=== PATIENT | female | born 1980 | race Caucasian/White ===

== ENCOUNTER 2016-11-08 09:36 | Emergency (ER) | payer OTHER ==
[2016-11-08 09:36] VITALS: BMI 21.9
[2016-11-08 09:44] VITALS: BP 119/78; TEMP 97
--- NOTE | 2016-11-08 10:18 | ED.PDOC ---
General ED Provider: Dr. REGINE FRENCH Chief Complaint: Facial Injury Stated Complaint: patient is a 36 year old female who states she was told that she has glucoma at [facility] when she went to get her glasses. She has not yet seen an opthamilogist. She states that she started having right eye pain two days ago with numbness around the eye. She denies any Trauma. Has photophobia and her vision is decreased on the right eye. Time Seen by Physician: 10:16 Mode of Arrival: Walk-In Information Source: Patient Exam Limitations: No limitations Primary Care Provider: [facility] Nursing and Triage Documentation Reviewed and Agree: Yes EENT Complaint Exam - Eye Complaint/Exam Onset/Duration: 2 days Symptoms Are: Still present Timing: Constant Initial Severity: Moderate Current Severity: Mild Location: Right Character: Reports: Dull, Throbbing Aggravating: Reports: Light Alleviating: Reports: Darkness Associated Signs and Symptoms: Reports: Photophobia, Vision impairment. Denies : Clear drainage, Purulent drainage, Fever, Swelling Related History: Reports: Glaucoma Eye Surgical History: Reports: None Penetrating Injury Risk Factors: None Globe Rupture Risk Factors: None Acute Glaucoma Risk Factors: None Optic Artery Occlusion Risk Factors: None Visual Acuity Right Eye: 20/50 Visual Acuity Left Eye: 20/20 Review of Systems - Review Of Systems Constitutional: Reports: No symptoms Eyes: Reports: Vision change, Photophobia, Glasses Ears, Nose, Mouth, Throat: Reports: No symptoms Respiratory: Reports: No symptoms Cardiac: Reports: No symptoms GI: Reports: No symptoms : Reports: No symptoms Musculoskeletal: Reports: No symptoms Skin: Reports: No symptoms Neurological: Reports: No symptoms Endocrine: Reports: No symptoms Hematologic/Lymphatic: Reports: No symptoms All Other Systems: Reviewed and Negative Past Medical History - Past Medical History Previously Healthy: No Endocrine: Reports: None Cardiovascular: Reports: Other (symptomatic bradycardia- pacemaker) Respiratory: Reports: None Hematological: Reports: None Gastrointestinal: Reports: Other Genitourinary: Reports: Other Neuro/Psych: Reports: None Musculoskeletal: Reports: None Cancer: Reports: Other Last Menstrual Period: none Other Pertinent Past Medical History: Glaucoma - Surgical History General Surgical History: Reports: Hysterectomy (dysplasia with muscle involvement), Cholecystectomy, Pacemaker - Family History Family History: Reports: Unknown - Social History Smoking Status: Current every day smoker Hx Substance Use: No Alcohol Screening: Occasionally Physical Exam - Physical Exam Appearance: Well-appearing, No pain distress, Well-nourished Eyes: KIRIT, EOMI, Conjunctiva clear, Right pupil size (5mm), Left pupil size ( 5mm) ENT: Ears normal, Nose normal, Oropharynx normal Respiratory: Airway patent, Breath sounds clear, Breath sounds equal, Respirations nonlabored Cardiovascular: RRR, Pulses normal, No rub, No murmur GI/: Soft, Nontender, No masses, Bowel sounds normal, No Organomegaly Musculoskeletal: Normal strength, ROM intact, No edema, No calf tenderness Skin: Warm, Dry, Normal color Neurological: Sensation intact, Motor intact, Reflexes intact, Cranial nerves intact, Alert, Oriented Psychiatric: Affect appropriate, Mood appropriate Physician Notification - Case Discussed Physician Notified: DR Curran [facility] Time of Notification: 10:30 Critical Care Note - Critical Care Note Total Time (mins): 0 Course - Course Vital Signs: Temp Pulse Resp BP Pulse Ox 11/08/16 09:36 97.0 F L 76 18 119/78 97 Departure - Departure Time of Disposition: 10:39 Disposition: HOME SELF-CARE Discharge Problem: Acute pain in right eye Glaucoma Qualifiers: Glaucoma type: other Laterality: right Qualifier Code: (H40.89) Other specified glaucoma Instructions: Glaucoma (ED) Condition: Good Pt referred to PMD for follow-up: Yes Additional Instructions: Go to Dr Curran [facility] at [address] in [place] Right away he will be waiting for you at 11 :15 Allergies/Adverse Reactions: Allergies shellfish derived Adverse Reaction (Verified 11/08/16 09:40) Home Medications: Ambulatory Orders 1 [No Reported Medications] 11/08/16 Disposition Discussed With: Patient
[2016-11-08] MEDS ORDERED: TYLENOL PO STA (10:23)
== END 2016-11-08 10:50 | disposition home or self-care (01) ==
LOC: ED 09:36
DX: H57.11 Ocular pain, right eye (principal); H40.9 Unspecified glaucoma; F17.210 Nicotine dependence, cigarettes, uncomplicated
CPT/HCPCS: 99282

== ENCOUNTER 2017-06-16 13:20 | Outpatient (CLI) | END 2017-06-16 13:21 | disposition home or self-care (01) | LOC: LAB 13:20 | PROVIDERS: ATTEND Emergency Medicine | DX: R68.89 Other general symptoms and signs (principal); J06.9 Acute upper respiratory infection, unspecified | CPT/HCPCS: 87502; 87651 ==

== ENCOUNTER 2017-06-18 09:48 | Emergency (ER) ==
[2017-06-18 09:52] VITALS: BP 117/78; TEMP 99; BMI 23.0
[2017-06-18] MEDS ORDERED: TORADOL IM STA (10:40)
[2017-06-18] MEDS ORDERED: NORFLEX PO STA (10:43)
--- NOTE | 2017-06-18 10:44 | ED.PDOC ---
General ED Provider: Dr. AAMIR FONG Chief Complaint: Shortness of Air Stated Complaint: Severe shortness of breath/associated chest pain. HPI: Was seen by PCP Dr Malone yesterday for severe respiratory symptoms of cough, congestion; was evaluated with neg strep and flu test. Started on Prednisone and Penicillin for "bacterial-viral" infection.This morning after going to work at the long-[employer] became extremely short of breath with associate chest pain just walking down the halll and my supervisor [employer] products advised me to leave work and go to the ER. 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 Had to be shocked once. 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.) Nursing and Triage Documentation Reviewed and Agree: Yes Reviewed sepsis parameters & appropriate labs ordered?: Yes System Inflammatory Response Syndrome: Not Applicable Sepsis Protocol: For patient's 13 years and over: Temp is 96.8 and below OR 101 and greater Pulse >90 BPM Resp >20/minute Acutely Altered Mental Status Are patient's symptoms suggestive of a new infection, such as: -Pneumonia -Skin, Soft Tissue -Endocarditis -UTI -Bone, Joint Infection -Implantable Device -Acute Abdominal Infection -Wound Infection -Meningitis -Blood Stream Catheter Infection -Unknown System Inflammatory Response Syndrome: Not Applicable Respiratory Complaint Exam - Shortness of Air Complaint/Exam Symptoms Are: Resolved Timing: Intermittent Initial Severity: Severe Current Severity: None Character: Reports: Dyspnea on exertion Aggravating: Reports: Movement, Deep breaths, Recumbent position, URI Alleviating: Reports: None Associated Signs and Symptoms: Reports: Cough, Wheezing, Chest pain with cough, Chest pain Related History: Reports: Similar episode History of Healthcare-Acquired Pneumonia: No Pulmonary Embolism Risk Factors: Reports: None Cardiac Risk Factors: Reports: Hypertension (hx of coccaine abuse) Pseudomonas Risk Factors: Reports: None Tuberculosis Risk Factors: Reports: None Home Oxygen Use: No Recent Stress Test: No Recent Echo/LV Function: No Respiratory Distress: None Stridor Present: No Tracheal Deviation: No Subcutaneous Emphysema: No Accessory Muscle Use: No Retractions: Not Present Diminished Breath Sounds: No Prolonged Expiratory Phase: No Unable to Speak Full Sentences: No Fatigue: No Leg Swelling: No Neelam's Sign Present: No Grunting Respirations: No Kussmaul Respirations: No Differential Diagnoses: Unstable Angina, Bronchitis, URI Quality Indicator For Non-Traumatic Chest Pain/Syncope: EKG Performed Review of Systems - Review Of Systems Constitutional: Reports: No symptoms Eyes: Reports: No symptoms Ears, Nose, Mouth, Throat: Reports: No symptoms Respiratory: Reports: Cough, Short of air Cardiac: Reports: Chest pain GI: Reports: No symptoms : Reports: No symptoms Musculoskeletal: Reports: Back pain Skin: Reports: No symptoms Neurological: Reports: No symptoms Endocrine: Reports: No symptoms Hematologic/Lymphatic: Reports: No symptoms All Other Systems: Reviewed and Negative Past Medical History - Past Medical History Previously Healthy: No Endocrine: Reports: None Cardiovascular: Reports: Other (symptomatic bradycardia- pacemaker) Respiratory: Reports: None Hematological: Reports: None Gastrointestinal: Reports: Other Genitourinary: Reports: Other Neuro/Psych: Reports: None Musculoskeletal: Reports: None Cancer: Reports: Other Last Menstrual Period: HYSTERECTOMY Other Pertinent Past Medical History: Glaucoma - Surgical History General Surgical History: Reports: Hysterectomy (dysplasia with muscle involvement), Cholecystectomy, Pacemaker - Family History Family History: Reports: Unknown - Social History Smoking Status: Current every day smoker, Heavy tobacco smoker Hx Substance Use: No Alcohol Screening: Occasionally - Immunizations Tetanus Shot up to Date: No Physical Exam - Physical Exam Appearance: Well-appearing Ill-appearing: Mild Pain Distress: Moderate Eyes: KIRIT, EOMI, Conjunctiva clear ENT: Ears normal Neck: Supple Respiratory: Airway patent, Breath sounds clear, Breath sounds equal Cardiovascular: RRR, Pulses normal, No rub, No murmur GI/: Soft, Nontender, No masses, Bowel sounds normal Musculoskeletal: Normal strength (Rt Upper Throracic PVM spasm and Somtic Dysfunction T3-4), ROM intact, No edema, No calf tenderness Skin: Warm, Dry Neurological: Sensation intact, Motor intact, Reflexes intact, Cranial nerves intact, Alert, Oriented Psychiatric: Affect appropriate, Anxious Procedures - Additional Procedures Additional Procedures: Other (OMT counterstrain Rt Thoracic Region ) Re-Evaluation - Re-Evaluation Time of Re-Evaluation: 12:30 Status: Improved Vital Signs Stable: Yes Appearance: NAD Lungs: Clear Skin: Warm and Dry Neuro: Alert and Oriented X3 CV: RRR Additional Comments: Still has some tenderness to palpation RT Upper Thoracic region-ant chest Critical Care Note - Critical Care Note Total Time (mins): 0 Course - Course Hematology/Chemistry: 06/18/17 10:55 06/18/17 10:55 Orders, Labs, Meds: Lab Review 06/18/17 06/18/17 10:55 10:55 WBC 12.20 H RBC 4.12 L Hgb 12.7 Hct 37.2 MCV 90.3 MCH 30.8 MCHC 34.1 RDW Coeff of Jailyn 12.8 Plt Count 248 Immature Gran % (Auto) 1.2 Neut % (Auto) 72.9 Lymph % (Auto) 17.6 [place] % (Auto) 7.0 Eos % (Auto) 1.1 Baso % (Auto) 0.2 Immature Gran # (Auto) 0.2 Neut # 8.9 H Lymph # 2.2 [place] # 0.9 Eos # 0.1 Baso # 0.0 Sodium 142 Potassium 4.1 Chloride 107 Carbon Dioxide 25 Anion Gap 14.1 BUN 15 Creatinine 0.91 Estimated GFR (MDRD) 70.00 BUN/Creatinine Ratio 16.48 Glucose 115 H Calcium 9.2 Total Bilirubin < 0.3 AST 18 ALT 35 Alkaline Phosphatase 89 Troponin I 0.0130 Total Protein 6.8 Albumin 3.7 Globulin 3.1 Albumin/Globulin Ratio 1.19 Orders Category Date Time Status EKG-(ED ONLY) Stat CARDIO 06/18/17 10:41 Completed CBC W/ AUTO DIFF Stat LAB 06/18/17 10:55 Completed CMP [COMPREHENSIVE METABOLIC PANEL] Stat LAB 06/18/17 10:55 Completed TROPONIN I Stat LAB 06/18/17 10:55 Completed Ketorolac Tromethamine [Toradol] MEDS 06/18/17 10:40 Discontinued 30 mg IM ONCE STA Orphenadrine Citrate [Norflex] MEDS 06/18/17 10:43 Discontinued 100 mg PO ONCE STA CHEST, 2 VIEWS PA & LAT Stat RADS 06/18/17 10:40 Completed Medications Discontinued Medications Generic Name Dose Route Start Last Admin Trade Name Freq PRN Reason Stop Dose Admin Ketorolac Tromethamine 30 mg 06/18/17 10:40 06/18/17 10:51 Toradol IM 06/18/17 10:41 30 mg ONCE STA Administration Orphenadrine Citrate 100 mg 06/18/17 10:43 06/18/17 10:51 Norflex PO 06/18/17 10:44 100 mg ONCE STA Administration Vital Signs: Temp Pulse Resp BP Pulse Ox 06/18/17 09:48 99 F 80 22 117/78 99 Departure - Departure Time of Disposition: 14:00 Disposition: HOME SELF-CARE Discharge Problem: Dyspnea, URI (upper respiratory infection), Chest pain, Thoracic region somatic dysfunction, Anterior chest wall pain Instructions: Upper Respiratory Infection (ED), Chest Pain (ED), Thoracic Pain (ED) Condition: Good Pt referred to PMD for follow-up: Yes IPMP verified?: No Additional Instructions: Take meds as directed Take meds with food If develops and GI discomfort-Hold Ibuprofen Take antacids as needed for indigestion Allergies/Adverse Reactions: Allergies shellfish derived Adverse Reaction (Verified 06/18/17 09:52) Home Medications: Ambulatory Orders Ibuprofen 600 mg PO 1-3XD PRN #30 tablet 06/18/17 Orphenadrine Citrate [Norflex] 100 mg PO Q12HR #10 tablet.er 06/18/17
--- NOTE | 2017-06-18 11:22 | DI ---
EXAM: CHEST FRONTAL AND LATERAL VIEWS HISTORY: Dyspnea, chest wall pain. COMPARISON: 05/29/2012 FINDINGS: Heart size and mediastinal contour remain within normal limits. Pacemaker unit is new. Mild hyperinflation. No acute infiltrates are seen. No vascular congestion. There is no consolidati on, visible pleural fluid or pneumothorax. Bones reveal no acute fracture. IMPRESSION: No acute cardiopulmonary process.
== END 2017-06-18 14:40 | disposition home or self-care (01) ==
LOC: ED 09:48
DX: J06.9 Acute upper respiratory infection, unspecified (principal); R07.89 Other chest pain; R06.02 Shortness of breath; M99.02 Segmental and somatic dysfunction of thoracic region; I10 Essential (primary) hypertension; Z95.0 Presence of cardiac pacemaker; F17.210 Nicotine dependence, cigarettes, uncomplicated
CPT/HCPCS: 36415; 80053; 84484; 85025; 93005; 93010; 96372; 99284